=== PATIENT | female | born 1945 | race Two or more races ===

== ENCOUNTER 2022-06-23 08:15 | Inpatient (IN) | payer OTHER ==
[~2022-06-23] VITALS: Ht 165.1 cm; Wt 64.9 kg
[2022-06-23] MEDS ORDERED: COZAAR100 MG PO (09:14)
[2022-06-23] MEDS ORDERED: LOTREL 10-20 M1 EACH PO (09:14)
[2022-06-30] MEDS ORDERED: DUI500 PO (16:12)
[2022-06-30] MEDS ORDERED: PERCOCET 5-3251 EACH PO (16:12)
[2022-06-30] MEDS ORDERED: ELIQUIS2.5 MG PO (16:12)
== END 2022-06-30 19:03 | DRG 470 ==
LOC: SURG 06-28 06:19 → O/R 06-28 06:19 → SURG 06-28 08:15
PROVIDERS: ADMIT Orthopaedic Surgery; ATTEND Orthopaedic Surgery
PROC: 0MNP0ZZ Release Left Knee Bursa and Ligament, Open Approach (ICD-10-PCS; 2022-06-28)
PROC: 0SRD0J9 Replacement of Left Knee Joint with Synthetic Substitute, Cemented, Open Approach (ICD-10-PCS; principal; 2022-06-28 14:00)
DX: M17.12 Unilateral primary osteoarthritis, left knee (principal); M22.12 Recurrent subluxation of patella, left knee; Z20.822 Contact with and (suspected) exposure to COVID-19